=== PATIENT | female | born 1995 | race Caucasian/White ===

== ENCOUNTER 2018-08-16 22:49 | Emergency (ER) | payer SELFPAY ==
[~2018-08-16] VITALS: Ht 160 cm; Wt 68.2 kg
[2018-08-16 22:53] VITALS: Ht 160 cm; Wt 68.2 kg
[2018-08-17 00:23] VITALS: BP 94/43
== END 2018-08-17 00:24 | disposition home or self-care (01) ==
LOC: D.ER 22:49
DX: O26.891 Other specified pregnancy related conditions, first trimester (principal); Z3A.10 10 weeks gestation of pregnancy; T78.40XA Allergy, unspecified, initial encounter; X58.XXXA Exposure to other specified factors, initial encounter; R21 Rash and other nonspecific skin eruption

== ENCOUNTER 2019-01-31 13:36 | Outpatient (CLI) | payer SELFPAY ==
[2018-08-16 22:53] VITALS: BMI 26.6
== END 2019-01-31 15:00 ==
LOC: D.LDO 13:36
PROVIDERS: ATTEND Obstetrics & Gynecology
DX: O36.8130 Decreased fetal movements, third trimester, not applicable or unspecified (principal); Z3A.35 35 weeks gestation of pregnancy

== ENCOUNTER → 2019-02-17 13:38 | Outpatient (CLI) | payer MEDICAID ==
[2018-08-16 22:53] VITALS: BMI 26.6
[~2019-02-17 13:38] MED LIST: HYDROCODON-ACE1 EA10 PO; IBUPROFEN600 MG PO; PRENAVITE1 TAB PO; ZOFRAN ODT4 MG/UDTAB PO
[2019-03-04 23:43] VITALS: BMI 26.6
== END | disposition home or self-care (01) ==
LOC: D.LDO 13:38
PROVIDERS: ATTEND Obstetrics & Gynecology
DX: O36.5930 Maternal care for other known or suspected poor fetal growth, third trimester, not applicable or unspecified (principal); Z3A.37 37 weeks gestation of pregnancy

== ENCOUNTER → 2019-02-22 11:41 | Outpatient (CLI) | payer MEDICAID ==
[2018-08-16 22:53] VITALS: BMI 26.6
[2019-03-04 23:43] VITALS: BMI 26.6
== END | disposition home or self-care (01) ==
LOC: D.LDO 11:41
PROVIDERS: ATTEND Obstetrics & Gynecology
DX: O26.90 Pregnancy related conditions, unspecified, unspecified trimester (principal); O36.90X0 Maternal care for fetal problem, unspecified, unspecified trimester, not applicable or unspecified

== ENCOUNTER → 2019-02-25 06:07 | Outpatient (CLI) | payer MEDICAID ==
[2019-02-25 06:42] LABS: APPEARANCE HAZY (CLEAR); BILIRUBIN NEGATIVE (NEGATIVE); COLOR YELLOW (YELLOW); GLUCOSE NEGATIVE (NEGATIVE); KETONE NEGATIVE (NEGATIVE); NITRITE NEGATIVE (NEGATIVE); PROTEIN TRACE mg/dL (NEGATIVE); RED CELLS - URINE >50 /hpf (0-5); UROBILINOGEN NORMAL (NORMAL); WHITE CELLS - URINE 25-50 /hpf (0-5)
[2019-02-25 06:43] LABS: BACTERIA MODERATE /hpf (NONE SEEN); EPITHELIAL CELLS 0-5 /hpf (0-5)
[2019-02-25 07:15] LABS: UDS - AMPHET NEGATIVE QUAL (NEGATIVE); UDS - BARB NEGATIVE QUAL (NEGATIVE); UDS - BENZO NEGATIVE QUAL (NEGATIVE); UDS - COCAINE NEGATIVE QUAL (NEGATIVE); UDS - OPIATE NEGATIVE QUAL (NEGATIVE); UDS - PCP NEGATIVE QUAL (NEGATIVE); UDS - THC POSITIVE QUAL (NEGATIVE)
== END | disposition home or self-care (01) ==
LOC: D.LDO 06:07
PROVIDERS: Obstetrics & Gynecology
DX: O26.893 Other specified pregnancy related conditions, third trimester (principal); Z3A.38 38 weeks gestation of pregnancy

== ENCOUNTER → 2019-02-27 11:44 | Outpatient (CLI) | payer MEDICAID ==
[2018-08-16 22:53] VITALS: BMI 26.6
[2019-03-04 23:43] VITALS: BMI 26.6
== END | disposition home or self-care (01) ==
LOC: D.LDO 11:44
PROVIDERS: ATTEND Obstetrics & Gynecology
DX: O36.5930 Maternal care for other known or suspected poor fetal growth, third trimester, not applicable or unspecified (principal); Z3A.38 38 weeks gestation of pregnancy

== ENCOUNTER 2019-03-01 06:00 | Inpatient (IN) | payer MEDICAID ==
[2019-03-01] VITALS (14 sets, daily range): BP systolic 107–138; BP diastolic 52–84; BMI 29.2
[~2019-03-01] VITALS: Ht 160 cm; Wt 74.8 kg
[2019-03-01] MEDS ORDERED: PRENAVITE1 TAB PO (06:18)
[2019-03-01 07:20] LABS: UDS - AMPHET NEGATIVE QUAL (NEGATIVE); UDS - BARB NEGATIVE QUAL (NEGATIVE); UDS - BENZO NEGATIVE QUAL (NEGATIVE); UDS - COCAINE NEGATIVE QUAL (NEGATIVE); UDS - OPIATE NEGATIVE QUAL (NEGATIVE); UDS - PCP NEGATIVE QUAL (NEGATIVE); UDS - THC POSITIVE QUAL (NEGATIVE)
[2019-03-01 07:38] LABS: HEMATOCRIT 30.6 % (36.0-48.0); HEMOGLOBIN 10.5 g/dL (12-16); MCH 28.2 pg (26.0-34.0); MCHC 34.3 g/dL (31.0-37.0); MEAN PLATELET VOLUME 12.3 fL (7.4-10.4); RBC 3.73 10x6/uL (4.00-5.40); RDW 12.5 % (11.5-14.5); WBC 8.4 10x3/uL (4.8-10.8)
--- NOTE | 2019-03-01 11:43 | NUR ---
XRAY FREE FROM ANY RETAINED OBJECTS PER DR CARDENAS
--- NOTE | 2019-03-01 12:01 | NUR ---
FUNDUS PALPATED, FIRM AND MIDLINE.
--- NOTE | 2019-03-01 12:15 | NUR ---
RECEIVED PT TO LABOR AND DELIVERY POST SECTION BY DR. GOMEZ. RECEIVED PT BY BED TO #[id number], WITH REPORT RECEIVED FROM VISCOSITY INSPECTOR. PT HAS LOW TRANSVERSE INCISION, COVERED IN LARGE WHITE BORDER DRESSING, C/D/I. ABDOMEN PALPATES SOFT, FUNDUS FIRM, U/1, SMALL RUBRA LOCHIA NOTED ONTO PERIPAD. NEW ICE PACK PLACED OVER GOWN TO INCISION. SCD'S ON, AND CONNECTED TO PUMP. PT STATES "THE NUMBNESS IS STARTING TO WEAR OFF, BUT I CAN'T MOVE MY LEGS YET". PT DENIES ALL PAIN AT THIS TIME. EMESIS BAG AT PT'S SIDE, PT STATES "I GOT NAUSEATED, BUT I JUST SPIT, AND DIDN'T THROW UP". NEW EMESIS BAG PLACED AT PT'S SIDE. VISCOSITY INSPECTOR STATES HE JUST GAVE PT 4 MG OF ZOFRAN IV. PT STATES "I'M STARTING TO FEEL A LITTLE BETTER". PT REQEUSTS SPRITE TO DRINK. PT ENCOURAGED TO TAKE SMALL SIPS OF SPRITE. PT BONDING WITH INFANT. IV SITE WITHOUT REDNESS OR SWELLING, INFUSING IVF OF PITOCIN 20 UNITS OFF PUMP AT MODERATE RATE, SET TO PUMP AT 125 ML/HR WITH APPROX 400 ML LEFT IN CURRENT BAG. PT DENIES SOB, DIFFICULTY BREATHING OR NAUSEA AT THIS TIME. DILAUDID ACTUARY EXPLAINED TO PT FOR PAIN MANAGMENT. PT'S LEFT EYE NOTED TO BE SLIGHTLY RED WITH EYELID SLIGHTLY SWOLLEN. PT DENIES VISUAL DISTURBANCES, NO DROOPING OR WEAKNESS NOTED TO FACE/TONGUE. WARM WET WASHCLOTH PROVIDED FOR PT TO PLACE OVER LEFT EYE. PT DENIES PAIN TO EYE. PT HAS HERNANDEZ CATH IN PLACE WITH 700 ML'S TOTAL OUTPUT OF YELLOW URINE. PT DENIES ALL OTHER NEEDS AT THIS TIME. SRUP X 2, CALL LIGHT AND PHONE WITHIN REACH.
--- NOTE | 2019-03-01 12:30 | NUR ---
FUNDUS FIRM, U/1, SMALL RUBRA LOCHIA, NO CLOTS EXPELLED. PT CONTINUES TO BREASTFEED . Prasad JADE, LYNN ASSISTING PT WITH . PT DENIES ALL NEEDS AT THIS TIME. SRUP X2, CALL LIGHT AND PHONE WITHIN REACH.
--- NOTE | 2019-03-01 12:45 | NUR ---
TO PT'S ROOM, FUNDUS FIRM, U/1, SMALL RUBRA LOCHIA, NO CLOTS EXPELLED. PT DENIES SOB, NAUSEA, OR DIFFICULTY BREATHING AT THIS TIME. SR UP X 2, CALL LIGHT AND PHONE WITHIN REACH.
--- NOTE | 2019-03-01 13:00 | NUR ---
PT REPORTS PAIN TO INCISIONAL AREA 2-3/10.
--- NOTE | 2019-03-01 13:30 | NUR ---
ASSISTED PT WITH REPOSITIONING IN THE BED, TO RIGHT TILT. PT WISHES TO REST AT THIS TIME. PT DENIES ALL OTHER NEEDS. SRUP X2, CALL LIGHT AND PHONE WITHIN REACH.
--- NOTE | 2019-03-01 14:45 | NUR ---
TO PT'S ROOM TO ADM TORADOL PT HAS REQUESTED. SEE EMAR FOR ALL MED ADM. FUNDUS FIRM, U/1, SMALL RUBRA LOCHIA, ONE DIME SIZED CLOTS EXPELLED. MINIMAL EXTERNAL LABIAL SWELLING NOTED. PERINEAL CARE DONE WITH WARM WET WASHCLOTHS, PERITOWELS/CHUX CHANGED, WITH PERIPADS APPLIED. HERNANDEZ CATH CONTINUES TO DRAIN YELLOW URINE, TOTAL URINE OUTPUT NOTED IN HERNANDEZ BAG IS 1000 ML'S. SCD'S REMAIN ON. PT'S POSITION CHANGED FROM LEFT TILT, TO RIGHT TILT, WITH PILLOW PLACED UNDER BACK FOR SUPPORT AND COMFORT. FRESH ICE PACK PLACED OVER GOWN TO INCISION. PT INSTRUCTED ON USE OF INCENTIVE SPIROMETER, AND COUGHING AND DEEP BREATHING EXERCISES, AND PT DEMONSTRATES BOTH WELL X 3. PT HAS CLEAR LIQUID DIET, AND DENIES NAUSEA, SOB, OR DIFFICULTY BREATHING. SRUP X 2, CALL LIGHT AND PHONE WITHIN REACH. PT DENIES ALL OTHER NEEDS AT THIS TIME. FAMILY AT BEDSIDE.
--- NOTE | 2019-03-01 15:00 | NUR ---
DR. QUACH TO ROOM TO SPEAK WITH PT.
[2019-03-01 16:55] LABS: BASOPHILS 0.1 % (0-2); EOSINOPHILS 0.2 % (0-7); HEMATOCRIT 29.3 % (36.0-48.0); HEMOGLOBIN 10.2 g/dL (12-16); IMMATURE GRANULOCYTES 0.2 % (0-5); LYMPHOCYTES 19.2 % (15-50); MCH 28.4 pg (26.0-34.0); MCHC 34.8 g/dL (31.0-37.0); MCV 81.6 fL (80.0-100.0); MEAN PLATELET VOLUME 11.4 fL (7.4-10.4); MONOCYTES 6.4 % (2-11); NEUTROPHILS 73.9 % (40-80); PLATELET COUNT 145 10x3/uL (130-400); RBC 3.59 10x6/uL (4.00-5.40); RDW 12.4 % (11.5-14.5)
[2019-03-01 16:56] LABS: WBC 12.3 10x3/uL (4.8-10.8)
--- NOTE | 2019-03-01 18:00 | NUR ---
TO PT'S ROOM, INFANT IS . PT REQUESTS HELP WITH , AND STATES "I DO NOT LIKE THIS NIPPLE SHIELD". BERTO JADE, MINILAB OPERATOR NOTIFIED AND TO ROOM TO ASSIST PT WITH . NIPPLES ARE NOTED TO BE FLAT. FRESH ICE PACK PLACED OVER GOWN TO INCISION. ABDOMEN PALPATES SOFT. HERNANDEZ CATH EMPTIED WITH 1000 MLS OUTPUT. FAMILY REMAINS AT BEDSIDE. SRUP X 2, CALL LIGHT AND PHONE WITHIN REACH.
--- NOTE | 2019-03-01 18:40 | NUR ---
PT CALLS RN TO ROOM, STATES "I JUST BARFED, AND CAN YOU THROW MY BAG AWAY?" APPROX 50 CC'S OF LIGHT GREEN EMESIS NOTED IN BLUE EMESIS BAG. PT STATES "PAIN MEDICINE DOES THIS TO ME, BUT I'M NOT NAUSEATED ALL THE TIME, ONLY EVERY NOW AND THEN WHEN I PUSH MY BUTTON". PT DENIES NEEDING ANYTHING FOR NAUSEA AT THIS TIME. FRIENDS AT BEDSIDE TO VISIT. SR UP X 2, CALL LIGHT AND PHONE WITHIN REACH. PT REPORTS PAIN 2-3/10 INCISIONAL PAIN, STATES "IT FEELS LIKE IT TALAMANTES AND I CAN FEEL PRESSURE".
--- NOTE | 2019-03-01 19:06 | NUR ---
PATIENT SITTING UP IN BED VISITING WITH FAMILY/FRIENDS. BLOOD SPOT NOTED ON GOWN FROM WHERE IT HAD FALLEN BETWEEN HER LEGS. PERIPAD AND UNDERPADS REMOVED AND REPLACE WITH CLEAN PADS. CLEAN GOWN ALSO PROVIDED. FUNDUS FIRM MIDLINE/-2 AND BLEEDING NOTED TO BE SCANT RUBRA. DRESSING HAS ONE SMALL SPOT NOTED IN THE MIDDLE BUT HAS NOT COME THROUGH THE PAD AND NOT GOTTEN ANY LARGER THAN ORIGINALLY DOCUMENTED PER DAYSHIFT. HERNANDEZ DRAINING TO GRAVITY, MODERATE VAGINAL SWELLING NOTED WHICH REMAINS NO DIFFERENT THAN DAYSHIFTS ASSESSMENT. SCD BOOTS REMAIN IN PLACE ATTACHED TO A WORKING MACHINE. PT DENIES NEEDS AT THIS TIME. BED REMAINS LOCKED IN LOW POSITION, SIDERAILS UPX2 AND CALL PALOMARES AND TRAY TABLE IN REACH. INCENTIVE SPIROMETER AT BEDSIDE AND PT STATES THAT SHE HAS BEEN USING IT
--- NOTE | 2019-03-01 20:23 | NUR ---
PT STATES THAT SHE IS HUNGRY, APPLE JUICE AND CHICKEN BROTH PROVIDED PER CLEAR LIQUID DIET ORDER. PT HAS ICE WATER AND ICE CHIPS ON HER BEDSIDE TABLE. PT DENIES OTHER NEEDS AT THIS TIME. INFANT PLACED BACK IN OPEN CRIB AT BEDSIDE PER PT REQUEST. WILL CONTINUE TO MONITOR.
--- NOTE | 2019-03-01 20:42 | NUR ---
CALLED TO ROOM BY PATIENT, STATES THAT SHE JUST THREW UP. 400ML LIQUID EMESIS NOTED IN BAG. COLD RAG PROVIDED AND PT OFFERED A TOOTBRUSH BUT DECLINES. ZOFRAN AND TORADOL ADMINISTERED PER MD ORDERS, SEE EMAR. PT REQUESTING FOR PAM TO COME ASSIST HER WITH .
--- NOTE | 2019-03-01 20:52 | NUR ---
INFORMED LYNN OROZCO THAT THE PT HAD REQUESTED HER ASSISTANCE WITH , LYNN OROZCO TO BEDSIDE AT THIS TIME. FRESH ICE PACK ALSO PROVIDED FOR PTS ABDOMEN. PT DENIES FURTHER NEEDS. WILL CONTINUE TO MONITOR.
--- NOTE | 2019-03-01 21:29 | NUR ---
INFANT TO NURSERY VIA OPEN CRIB PER BREANARN PER MOTHERS REQUEST. STATES THAT SHE IS TIRED AND WOULD LIKE TO REST. PT HAS NO FAMILY OR FRIENDS STAYING WITH HER TONIGHT.
--- NOTE | 2019-03-01 22:43 | NUR ---
IN TO CHECK ON PT AND ASSIST SIGNIFICANT OTHER WITH MAKING THE COUCH INTO A BED. PT DENIES NEEDS OR PAIN, WILL CONTINUE TO MONITOR
--- NOTE | 2019-03-01 23:39 | NUR ---
PATIENT SITTING UP IN BED HOLDING INFANT AND BOTTLE FEEDING WITH ASSISTANCE FROM ZACHARIAH, RN AT THIS TIME. DENIES PAIN OR NEEDS, INSTRUCTED TO CALL WHEN SHE IS FINISHED SO I CAN CLEAN HER UP AND CHANGE HER PADS. PT VERBALIZES UNDERSTANDING.
--- NOTE | 2019-03-02 00:05 | NUR ---
PERICARE PERFORMED, BLEEDING SEROSANGUINOUS, SMALL IN AMOUNT. PADS CHANGED AT THIS TIME. PT DENIES OTHER NEEDS, WILL CONTINUE TO MONITOR.
--- NOTE | 2019-03-02 01:10 | NUR ---
IN TO CHECK ON PATIENT, NEW 1LITER BAG OF NS WITH PITOCIN HUNG AND INFUSING WITH ALARIS PUMP @125ML/HR PER MD ORDERS. PT DENIES NEEDS, LIGHTS OFF AND CALL PALOMARES IN REACH. WILL CONTINUE TO MONITOR.
--- NOTE | 2019-03-02 02:45 | NUR ---
PATIENT SITTING UP IN BED HOLDING . PT ASSISTED WITH . UNINTERESTED, PT DECIDED TO TRY A BOTTLE AND INFANT SEEMS UNINTERESTED WELL. LYNN TOUSSAINT NOTIFIED. TORADOL GIVEN SLOW IVP PER MD ORDERS AND PT REQUEST, SEE EMAR.
--- NOTE | 2019-03-02 04:00 | NUR ---
PT RESTING QUIETLY WITH EYES CLOSED, RESPIRATIONS EVEN AND NON LABORED. NO DISTRESS NOTED. BED REMAINS LOCKED IN LOW POSITION, SIDERAILS UP X2, CALL PALOMARES AND TRAY TABLE IN REACH. WILL CONTINUE TO MONITOR.
--- NOTE | 2019-03-02 06:40 | NUR ---
PATIENT SITTING UP IN BED, RATES HER PAIN 2/10 TO HER BACK. HYDRAULIC BILLET MAKER REMAINS IN USE. PERICARE PERFORMED AND CLEAN PADS PLACED. HERNANDEZ CATHETER DRAINING TO GRAVITY, 800 ML LULU URINE EMPTIED AT THIS TIME. PT REQUESTING THAT COME BACK TO THE ROOM.
--- NOTE | 2019-03-02 06:46 | NUR ---
INFANT TO ROOM VIA OPEN CRIB PER THIS RN. IDENTIFICATION BRACELETS VERIFIED. PT INFORMED THAT THE COULD EAT AT 0730 AND AFTER PUTTING HER TO THE BREAST IF THAT WAS UNSUCCESSFUL TO FEED HER A BOTTLE USING THE NEW NIPPLES PLACED IN THE CRIB PER LYNN TOUSSAINT. PT VERBALIZES UNDERSTANDING.
--- NOTE | 2019-03-02 07:05 | NUR ---
THIS RN AND LYNN SNEED AT BEDSIDE FOR BEDSIDE SHIFT REPORT. DR GOMEZ TO BEDSIDE FOR ROUNDING, ABD DRESSING REMOVED AND INCISION ASSESSED. C/D WITH SOFIA INTACT. DR GOMEZ DISCUSSES POC, VERBAL ORDERS RCVD TO NORMALIZE PT. IV MEDS STOPPED PER ORDER, IV SALINE LOCKED.
[2019-03-02 07:22] LABS: RAPID PLASMA REAGIN Non Reactive (Non Reactive)
[2019-03-02 07:26] LABS: BASOPHILS 0.2 % (0-2); EOSINOPHILS 0.7 % (0-7); HEMATOCRIT 28.2 % (36.0-48.0); HEMOGLOBIN 9.6 g/dL (12-16); IMMATURE GRANULOCYTES 0.1 % (0-5); LYMPHOCYTES 24.7 % (15-50); MCH 28.2 pg (26.0-34.0); MCV 82.7 fL (80.0-100.0); MEAN PLATELET VOLUME 11.1 fL (7.4-10.4); MONOCYTES 7.3 % (2-11); PLATELET COUNT 130 10x3/uL (130-400); RBC 3.41 10x6/uL (4.00-5.40); RDW 12.5 % (11.5-14.5); WBC 9.5 10x3/uL (4.8-10.8)
--- NOTE | 2019-03-02 07:26 | NUR ---
LAB EXITS ROOM FROM AM LAB DRAW. PT REQUESTING PAIN PILL "BEFORE PAIN GETS WORSE" RESOLUTION REP IS STOPPED. PT STATES SHE IS EASILY NAUSEATED WITH PAIN MEDS, REQUESTS ZOFRAN FIRST. PT ADMIN ZOFRAN IV ORDERED, SEE EMAR FOR DOC. PT PROVIDED WITH CRACKERS TO HAVE SOMETHING IN STOMACH PRIOR TO PAIN DIGITAL MEDIA SPECIALIST.
--- NOTE | 2019-03-02 07:31 | NUR ---
PT ADMIN PRN NORCO 10 ORDERED, SEE EMAR FOR DOC. SHIFT ASSESSMENT COMPLETED, VSS, SEE FLOWSHEET FOR DOC. FF, ML, U/1. SMALL RUBRA LOCHIA, NO CLOTS. HERNANDEZ CATH REMOVED PER ORDER. SCD'S REMAIN IN PLACE TO LE BILAT. PT INSTRUCTED TO CALL WHEN FEELS URGE TO VOID SO THIS RN CAN REMOVE SCD'S AND ASSIST PT TO BR. UNDERSTANDING VERBALIZED. S/S TO REPORT REGARDING LOCHIA DISCUSSED WITH PT, UNDERSTANDING VERBALIZED. PT ASSISTED TO SETTING UP BREAKFAST TRAY. PT ENCOURAGED TO EAT SLOWLY AND REPORT ANY NAUSEA. EMESIS BAG AT BEDSIDE. SRUx2, CL IN REACH. WILL CONT TO MONITOR.
[2019-03-02 07:38] VITALS: BP 117/64
--- NOTE | 2019-03-02 07:50 | NUR ---
PT CALLS OUT GOSPEL WORKER LIGHT STATING SHE VOMITED. THIS RN TO ROOM. PT SITTING UP IN BED, HOLDING EMESIS BAG WITH APPROX 100ML LIQUID VOMIT. PT STATE SHE THREW UP NORCO TABLET. TABLET NOTED IN BAG. PT REQUESTING SOMETHING ELSE FOR PAIN PAIN PILLS MAKE HER SICK. PT REQUESTING TORADOL, OR TO GO BACK ON IV PAIN MEDS. PT INSTRUCTED THAT IV PAIN MEDS HAVE BEEN STOPPED PER MD ORDER. DR GOMEZ PHONED AND NOTIFIED. ORDER RCVD FOR NORCO 5/325MG AND SEE IF PT IS ABLE TO TOLERATE THAT.
--- NOTE | 2019-03-02 07:55 | NUR ---
PT UPDATED ON POC, EATING BREAKFAST. PT ENCOURAGED TO HAVE SOMETHING ON STOMACH AND ALLOW IT TO SETTLE, AND WILL BRING NORCO 5 SOON WHEN AVAILABLE FROM PHARMACY. UNDERSTANDING VERBALIZED. SRUx2, CL IN REACH.
--- NOTE | 2019-03-02 08:15 | NUR ---
PT CALLS OUT SUPERVISOR CASE LOADING LIGHT STATING SHE VOMITED AGAIN. THIS RN TO ROOM. EMESIS BAG NOTED TO HAVE VOMITED SOLIDS AND LIQUIDS FROM BREAKFAST TRAY. TRAY REMOVED, PT ENCOURAGED TO GO SLOWER AND ONLY TRY CRACKERS FOR NOW, AND WILL WAIT TO TRY ADMIN PAIN MED FOR NOW. UNDERSTANDING VERBALIZED. PT HANDED INFANT TO BREASTFEED. SRUx2, CL AND PHONE WITHIN REACH. WILL CONT TO MONITOR.
--- NOTE | 2019-03-02 09:00 | NUR ---
THIS RN TO ROOM FOR PT CHECK AND PAIN DRIER IF READY. PT RESTING IN BED, SUPINE WITH EYES CLOSED. RESP EVEN AND UNLABORED. SRUx2, CL IN REACH. PT LEFT UNDISTURBED FOR REST.
--- NOTE | 2019-03-02 09:44 | NUR ---
PT CALLS OUT INVENTORY CLERK LIGHT STATING SHE IS READY TO GET UP TO BR. THIS RN TO ROOM. PT REQUEST PAIN MED. PT ADMIN PRN NORCO 5/325MG ORDERED, SEE EMAR FOR DOC. PT AMBULATES TO BR WITHOUT ASSIST, VOIDS APPROX 200ML URINE IN CONTAINER. PT PASSES 1 HALF-DOLLAR SIZED CLOT IN CONTAINER, SMALL RUBRA LOCHIA NOTED WELL. PERICARE PER PT SELF WITH WARM WET CLOTHS. PT PLACED IN CLEAN PANTIES AND PADS. AMBUALTES BACK TO BED WITHOUT ASSIST. PT REQUESTS SCD'S OFF AT THIS TIME FOR A BREAK, STATES SHE LIKES BEING ABLE TO MOVE AROUND IN BED. PT INSTRUCTED TO CALL OUT INVENTORY CLERK LIGHT FOR ASSIST WHEN UP TO BR AGAIN, AND WILL MEASURE NEXT VOID. UNDERSTANDING VERBALIZED. PT PROVIDED WITH FRESH ICE WATER, JELLO, AND CRACKERS PER REQUEST. TRANSFERRED TO PT PER REQUEST, ID BANDS VERIFIED TO MATCH. TRASH IN ROOM TAKEN OUT. PT DENIES FURTHER NEEDS. SRUx2, CL IN REACH. WILL CONT TO MONITOR.
[2019-03-02 11:00] VITALS: BP 124/71
--- NOTE | 2019-03-02 11:00 | NUR ---
PT CALLS OUT MARRIAGE PERFORMER LIGHT C/O HEADACHE. THIS RN TO ROOM. PT STATES PAIN ISN'T REALLY BETTER IN ABD AND NOW SHE HAS A HEADACHE. PT ADMIN PRN MOTRIN ORDERED, SEE EMAR FOR DOC. PT ENCOURAGED TO TRY CRACKERS OR JELLO WITH IT THE PILL MAY UPSET HER STOMACH AGAIN. UNDERSTANDING VERBALIZED. VSS, SEE FLOWSHEET FOR DOC. PT DENIES FURTHER NEEDS AT THIS TIME. SRUx2, CL IN REACH. WILL CONT TO MONITOR.
--- NOTE | 2019-03-02 12:30 | NUR ---
PT CALLS OUT AREA ATTENDANT LIGHT REQUESTING NURSE, THIS RN TO ROOM. PT STATES SHE HAS BEEN UP TO BR ONCE ALREADY AND IS ABOUT TO GET UP TO VOID AGAIN, WANTED NURSE TO BE ABLE TO MEASURE VOIDS INSTRUCTED. 350ML CLEAR YELLOW URINE NOTED IN CONTAINER FROM PRIOR VOID. CONTAINER EMPTIED. TAKEN FROM PT AND PLACED IN BASSINETTE. PT AMBULATES TO BR WITHOUT ASSIST, STEADY GAIT. PT VOIDS 400ML CLEAR YELLOW URINE, WASHES HANDS AND AMBULATES BACK TO BED. PT STATES PAIN IN ABD AND HEADACHE IS "A LITTLE BETTER," /. PT DENIES NEEDS AT THIS TIME. PT INSTRUCTED TO CALL WHEN SHE IS READY FOR A SHOWER AND THIS RN WILL CHANGE BED LINENS. UNDERSTANDING VERBALIZED, PT STATES SHE WILL SHOWER SHORTLY WHEN FAMILY MEMBER ARRIVES. SRUx2, CL IN REACH. WILL CONT TO MONITOR.
[2019-03-02 13:20] VITALS: Ht 160 cm; Wt 74.8 kg
--- NOTE | 2019-03-02 13:40 | NUR ---
PT CALLS OUT PERSONNEL GENERALIST MANAGER LIGHT REQUESTING RN TO ROOM. THIS RN TO ROOM. PT STATES SHE IS READY TO TAKE A SHOWER, AND THEN WILL BE READY FOR HER PAIN MED SHE IS STARTING TO HURT AGAIN WITH MOVEMENT. PT UP TO SHOWER, DENIES NEED FOR ASSISTANCE. PT PROVIDED WITH SHOWER SUPPLIES AND TOWELS. PT SHOWERS WITHOUT ASSIST. THIS RN CHANGES BED LINENS AND MONITORS IN BASSINETTE WHILE PT SHOWERS. PT OUT OF SHOWERS, DENIES NEED FOR ASSIST. DRIES SELF AND DRESSES IN OWN CLOTHES. PT BACK TO BED. INFANT HANDED TO PT PER REQUEST. WILL ADMIN PAIN MED ORDERED.
--- NOTE | 2019-03-02 14:02 | NUR ---
PT ADMIN PRN PAIN MED REQUESTED AND ORDERED, SEE EMAR FOR DOC. PT DENIES FURTHER NEEDS AT THIS TIME. SITTING UP IN BED HOLDING . SRUx2, CL IN REACH. WILL CONT TO MONITOR.
--- NOTE | 2019-03-02 15:48 | NUR ---
THIS RN TO ROOM FOR PT CHECK. PT SITTING UP IN BED, FEEDING A BOTTLE. PT STATES PAIN IS BETTER, BUT STILL HAS HEADACHE AND TENSION AT BACK OF HER NECK. PT STATES IT FEELS BETTER WHEN SHE IS UP OUT OF BED WALKING, STATES SHE JUST FEELS STIFF. PT ENCOURAGED, OFFERED TO TRY HEAT APPLICATION TO NECK LATER WHEN RESTING. DENIES NEEDS AT THIS TIME. SRUx2, CL IN REACH. WILL CONT TO MONITOR.
--- NOTE | 2019-03-02 17:24 | NUR ---
PT CALLS OUT WEAVER NARROW FABRICS LIGHT REQUESTING RN. THIS RN TO ROOM. PT C/O HEADACHE AND BACK PAIN, REQUESTING PAIN MEDICATION. PT ADMIN PRN MOTRIN ORDERED, SEE EMAR FOR DOC. PT PROVIDED WITH WARM HEEL PACK FROM NURSERY FOR NECK. PT ALSO PROVIDED WITH CUP OF ICE FOR SODA. PT DENIES FURTHER NEEDS. SRUx2, CL IN REACH. PT VISITING WITH FAMILY. WILL CONT TO MONITOR.
--- NOTE | 2019-03-02 18:21 | NUR ---
PT CALLS OUT HYDROELECTRIC PRODUCTION MANAGER LIGHT WITH REQUEST FOR RN. THIS RN TO ROOM. PT STATES PAIN IN HEAD AND NECK IS ONLY GETTING WORSE, NOW RATING PAIN 10/10. PT ADMIN PRN NORCO 5/325 PER HER REFUSAL FOR NORCO 10/325 DUE TO PRIOR NAUSEA WITH THAT DOSE. PT ENCOURAGED TO LIE FLAT AND LIGHTS IN ROOM DIMMED. PT STATES HER HEAD ALREADY FEELS BETTER IMMEDIATELY AFTER LYING FLAT. PT INSTRUCTED TO REMAIN FLAT FOR 20-30MIN TO EVAL IF HEADACHE STAYS BETTER WHILE SUPINE, AND WILL NOTIFY ANESTHESIA FOR EVAL OF HEADACHE. UNDERSTANDING VERBALIZED. SRUx2, CL IN REACH. FAMILY IN ROOM. WILL CONTINUE TO MONITOR.
--- NOTE | 2019-03-02 18:26 | NUR ---
ANESTHESIA PAGED AND NOTIFIED OF NEED FOR EVALUATION OF PATIENT FOR POSSIBLE SPINAL HEADACHE.
--- NOTE | 2019-03-02 18:59 | NUR ---
PT RECEIVED LYING FLAT IN BED DUE TO HEADACHE. STATES THAT HER HEADACHE IS GONE WHEN SHE LAYS FLAT. INFORMED HER THAT ANESTHESIA WOULD BE IN TO EVALUATE HER SOON. FAMILY AT BEDSIDE FOR SUPPORT.
--- NOTE | 2019-03-02 20:00 | NUR ---
ANESTHESIA TO PTS ROOM, DISCUSSING PLAN OF CARE. AFTER REVIEWING SYMPTOMS PLAN OF CARE IS DECIDED. PT WILL DRINK SEVERAL MOUNTAIN DEWS, HAVE AN IV FLUID BOLUS AND TRAMADOL 50 MG PO Q6HRS. IF PT HAS NO RELIEF BY MORNING THEN A BLOOD PATCH WILL BE INITIATED. PT VERBALIZES AGREEMENT.
--- NOTE | 2019-03-02 20:05 | NUR ---
20 GAUGE IV STARTED TO LEFT HAND AT THIS TIME WITHOUT INCIDENT.
--- NOTE | 2019-03-02 20:10 | NUR ---
NO MOUNTAIN DEW ON UNIT, TWO DR PEPPERS AND A CUP OF ICE PROVIDED PER ANESTHESIA. FIRE FIGHTER CALLED BUT PHONE IS BUSY
--- NOTE | 2019-03-02 20:13 | NUR ---
1000ML LACTATED RINGERS @500ML/HR PER ORDERS
[2019-03-02 20:33] VITALS: BP 136/75
--- NOTE | 2019-03-02 21:24 | NUR ---
PT STATES THAT LONG SHE LAYS FLAT AND DOESNT MOVE SHE HAS NO PAIN. ENCOURAGED HER TO GET SOME REST. BED REMAINS LOCKED IN LOW POSITION, SIDE RAILS UPX2, CALL PALOMARES AND TRAY TABLE IN REACH. WILL CONTINUE TO MONITOR.
--- NOTE | 2019-03-02 22:15 | NUR ---
PATIENT ASSISTED UP TO BATHROOM, STATES THAT SOON SHE STOOD UP HER HEADACHE WAS BACK. PT GRIMACING AND CRYING WHILE WALKING TO THE BATHROOM.PT VOIDED WITHOUT DIFFICULTY AND BACK TO BED.
--- NOTE | 2019-03-02 22:20 | NUR ---
EMERY VASQUEZ CRNA PAGED WITH IMMEDIATE CALL BACK, REPORT GIVEN ON PT REQUEST FOR A BLOOD PATCH AT THIS TIME DUE TO HER HEADACHE WILL NOT GO AWAY DESPITE THE IV FLUIDS, TRAMADOL AND TWO DR DANIELSS. EMERY VASQUEZ CRNA STATES THAT DR OTERO WANTS TO WAIT UNTIL THE MORNING AND TO GIVE HER TORADOL 30MG IVP NOW.
--- NOTE | 2019-03-02 22:30 | NUR ---
IV FLUIDS COMPLETED. IV SALINE LOCKED.
--- NOTE | 2019-03-02 22:35 | NUR ---
TORADOL 30MG SLOW IVP GIVEN PER MD ORDERS FOR 8/10 HEADACHE PAIN AT THIS TIME, SEE EMAR.
--- NOTE | 2019-03-02 23:25 | NUR ---
PT VISITING WITH FAMILY AND FRIENDS, STATES THAT SHE FEELS SO MUCH BETTER, RATES HER PAIN 2/10 TO HER INCISION. DENIES NEEDS, WILL CONTINUE TO MONITOR.
[2019-03-03] VITALS (7 sets, daily range): BP systolic 122–137; BP diastolic 66–90
--- NOTE | 2019-03-03 00:40 | NUR ---
LINENS PROVIDED FOR FAMILY AT THIS TIME, PT DENIES NEEDS OR PAIN AT THIS TIME. WILL CONTINUE TO MONITOR.
--- NOTE | 2019-03-03 01:59 | NUR ---
PATIENT RESTING QUIETLY WITH EYES CLOSED, FAMILY REMAINS AT BEDSIDE FOR SUPPORT. NO NEEDS IDENTIFIED.
--- NOTE | 2019-03-03 02:34 | NUR ---
PATIENT ADMINISTERED TRAMADOL 50MG PO PER MD ORDERS AT THIS TIME. SEE EMAR
--- NOTE | 2019-03-03 05:30 | NUR ---
ICE WATER BROUGHT TO PATIENT PER REQUEST. PT DENIES PAIN OR OTHER NEEDS AT THIS TIME
--- NOTE | 2019-03-03 06:29 | NUR ---
CALLED TO PATIENTS ROOM AT THIS TIME, PT CRYING, SAYING THAT HER HEAD BACK AND SHOULDERS ALL HURT, THERE IS SOMETHING WRONG WITH ME. ANESTHESIA PAGED WITH IMMEDIATE CALL BACK AND REPORTED PT CONTINUED PAIN. ANESTHESIA WILL BE HERE SOON TO EVALUATE THE PATIENT
--- NOTE | 2019-03-03 07:10 | NUR ---
ASSUMED CARE OF THIS PATIENT. CURRENTLY LAYING IN BED WITH EYES CLOSED. WILL COMPLETED SHIFT ASSESSMENT WHEN AWAKE. IN NURSERY. SIDERAILS UP X 2, CALL LIGHT IN REACH.
--- NOTE | 2019-03-03 07:10 | NUR ---
PT REPORT GIVEN TO XAVI CORTÉS RN TO ASSUME PATIENT CARE.
--- NOTE | 2019-03-03 07:29 | NUR ---
SHIFT ASSESSMENT COMPLETED. ALERT AND ORIENTED X 3, LAYING NEARLY FLAT IN BED, HAS C/O NECK AND SHOULDER PAIN / BUT NO HEADACH WHILE LAYING FLAT. SAYS IT GOT BAD AGAIN WHEN SHE GOT UP TO THE BATHROOM. GENERAL ASSESSMENT WNL EXCEPT FEDE-ORBITAL EDEMA NOTED, PT SAYS SHE HAD BEEN CRYING AND THAT HER EYES GET "PUFFY" WHEN SHE CRY'S. SHE ASKED ABOUT SEEING HER DOCTER. EXPLAINED THAT HE IS IN SURGERY AND WILL BE BY TO SEE HER [place]. ANTICIPATE ARRIVAL OF ANESTHESIA AT ANYTIME TO DISCUSS OB. SIDE RAILS UP X 2, CALL LIGHT IN REACH. DENIES INCISIONAL PAIN. NON-SMOKER, O+ RUBELLA IMMUNE, WILL CHECK TDAP STATUS BEFORE PT DC'D TO SEE IF TDAP IS REQUIRED. S/P C/S DAY 2.
--- NOTE | 2019-03-03 07:30 | NUR ---
Shiela Washburn RN from nursery reports that pt has requested to see/speak with Dr Patterson.
--- NOTE | 2019-03-03 07:32 | NUR ---
Dr Patterson notified of pt request, per md he would be in to see pt this am but currently in OR/Surgery, this is reported to pt primary nurse.
--- NOTE | 2019-03-03 07:45 | NUR ---
DR RUIZ AND Bo COWAN CRNA IN ROOM TO PERFORM BLOOD PATCH AFTER CONSENTING PATIENT. CONSENT SIGNED. Bo OCWAN CRNA ASSISTED PT TO SITTING POSITION AND ASSISTED DR RUIZ WITH PROCEDURE. SEE ANESTHESIA NOTES.
--- NOTE | 2019-03-03 07:45 | NUR ---
CONSENTS OBTAINED FOR BLOOD PATCH PER REQUEST OF DR RUIZ.
--- NOTE | 2019-03-03 08:00 | NUR ---
PROCEDURE COMPLETED. PT RETURNED TO LAYING POSITION. SAID PAIN WAS 3/10 WHILE SITTING. SIDERAILS UP X 2. DR RUIZ REMAINED IN ROOM. VS OBTAINED.
--- NOTE | 2019-03-03 08:00 | NUR ---
PROCEDURE COMPLETED BY DR RUIZ. VS OBTAINED. REMAINS IN ROOM WITH PATIENT.
--- NOTE | 2019-03-03 08:10 | NUR ---
ORDERS RECEIVED BY DR RUIZ TO GIVE ONE LITER BOLUS OF LR.
--- NOTE | 2019-03-03 08:15 | NUR ---
IV LR INFUSING AT 999 ML/HR PER ALARIS PUMP INTO LEFT HAND. NO EVIDENCE OF INFILTRATION AT THIS TIME. SIDERAILS REMAIN UP. EXTRACTION OPERATOR TO ROOM WITH TO WATCH PT FOR APPROX NEXT 30 MINS.
--- NOTE | 2019-03-03 09:50 | NUR ---
RESUMED CARE OF THIS PATIENT. NOW SITTING UP IN BED EATING BREAKFAST. DENIES PAIN IN HEAD OR SHOULDERS. NO INCISIONAL PAIN "EXCEPT WHEN I MOVE". IN ROOM. VISITOR AT BEDSIDE. BED PLACED IN LOW POSITION, SIDE RAILS UP X 2, CALL LIGHT IN REACH. IV INFUSING AT 999 ML/HR WITHOUT DIFFICULTY.
--- NOTE | 2019-03-03 10:08 | NUR ---
IV LR INFUSION COMPLETED. IV LINE DC'D FROM SALINE LOCK. ANTICIPATE MD VISIT. PATIENT ASKED ABOUT GOING HOME. NO REQUESTS. SIDERAILS UP X 2, CALL LIGHT IN REACH.
--- NOTE | 2019-03-03 10:59 | NUR ---
DR GOMEZ IN ROOM TALKING TO PATIENT.
--- NOTE | 2019-03-03 11:05 | NUR ---
NORCO 10 MG GIVEN PO PER REQUEST OF DR GOMEZ. PT SAY 0/10 PAIN EXCEPT WHEN MOVING AND IT IS AN 8/10 WITH MOVEMENT. TOOK NORCO 10 YESTERDAY AND SAYS SHE THREW UP IMMEDIATELY. TOOK MED WITH CRACKERS AT THIS TIME. SIDE RAILS UP X 2, CALL LIGHT IN REACH.
--- NOTE | 2019-03-03 11:13 | NUR ---
ASKED DR GOMEZ ABOUT ABDOMINAL BINDER TO ASSIST WITH LEFT ABD PAIN WHEN UP SAYS CAN TRY.
--- NOTE | 2019-03-03 11:20 | NUR ---
CALLED LAINA AT [facility] TO CHECK ON STATUS OF CONSULT. LEFT VOICE MAIL FOR HER TO CALL L&D.
--- NOTE | 2019-03-03 11:39 | NUR ---
SITTING UP IN BED HOLDING . SAYS HER PAIN IS BETTER, NOW A 3/10 WHEN MOVING BACK AND FORTH. STATES " I REALLY THINK IT'S BECAUSE I'VE BEEN IN BED". ENCOURAGED OOB AMBULATION. INSTRUCTED THAT THE BURNING IS COMMON DUE TO SURGERY AND THAT GETTING OOB, SHOWER AND AMBULATION MAY HELP. ALSO DISCUSSED ABDOMINAL BINDER OPTION FOR PAIN RELIEF WHEN UP. WILL REASSESS WHEN READY TO GET OUT OF BED.
--- NOTE | 2019-03-03 11:42 | NUR ---
CONTACTED LAINA IN [facility] WHO SAID SHE WILL BE DOWN TODAY TO SEE PATIENT. NO CURRENT DC ON PATIENT. CAN BE DC'D HOME TODAY.
--- NOTE | 2019-03-03 13:05 | NUR ---
CALLED TO ROOM. PT SAYS HERE INCISION IS BLEEDING. NOTED DIME SIZE SPOT OF BLOOD ON UNDERWEAR AND GOWN. NO CURRENT ACTIVE BLEEDING NOTED. SOFIA INTACT. NOTED SMALL BLOOD AROUND 4 SOFIA LEFT SIDE OF INCISION. FEDE-PAD PLACED OVER SITE. SITTING UP ON BEDSIDE EATING LUNCH WHEN ABOVE OCCURED. PT TO CALL IF ANY FUTHER BLEEDING. IN ROOM IN CRIB.
--- NOTE | 2019-03-03 13:29 | NUR ---
PT CALLED REQUESTING TO TAKE A SHOWER. UP IN ROOM AMBULATING WITHOUT DIFFICULTY. ASKED ABOUT AREAS ABOVE HIPS THAT "FEEL TIGHT". SLIGHT EDEMA NOTED BILATERALLY. EXPLAINED TO PATIENT THAT SOMETIMES THIS OCCURS AFTER DELIVERY OR MAY EVEN BE PRESENT DURING BUT HAS A DIFFERENT APPEARANCE TO TO CHANGES IN ABDOMEN/HIP APPEARANCE AFTER DELIVERY OF . ITEMS GIVEN TO TAKE A SHOWER. IV SITE COVERED. SAYS PAIN IS 5/10 WITH MOVEMENT. DISCUSSED ABDOMINAL BINDER SUPPORT. DESIRES TO TRY IT AFTER SHOWER, INFORMED THERE MAY BE A POSSIBILITY THAT INSURANCE WILL NOT COVER AND SHE WILL NEED TO SIGN A PAPER SAYS SHE WILL PAY IF NOT COVERED. VERBALIZED UNDERSANDING. SAYS SHE IS READY TO GO HOME.
--- NOTE | 2019-03-03 13:45 | NUR ---
FINISHED SHOWER. DRESSED IN REGULAR CLOTHES. AND VISITOR IN ROOM.
--- NOTE | 2019-03-03 13:54 | NUR ---
CALLED DR GOMEZ TO LET HIM KNOW THAT PATIENT DESIRE TO GO HOME. ALSO INFORMED OF SMALL AMOUNT OF BLEEDING NOTED AT LEFT EDGE OF INCISION, DIME SIZED THAT RESOLVED QUICKLY. ORDERS RECEIVED.
--- NOTE | 2019-03-03 14:14 | NUR ---
VERBAL AND WRITTEN INFORMATION GIVEN TO PATIENT REGARDING TDAP. PER [facility] IMMUNIZATION RECORDS LAST TDAP WAS IN 2008. AMBULATING IN ROOM. SAYS HER PAIN IS DOING OK. INSTRUCTED SHE CAN HAVE ANOTHER NORCO IN APPROX 45 MINS IF NEEDED. VERBALIZED UNDERSTANDING.
--- NOTE | 2019-03-03 14:21 | NUR ---
ENERGY EFFICIENCY ENGINEER HERE TO SEE PATIENT.
[2019-03-03] MEDS ORDERED: HYDROCODON-ACE1 EA10 PO (14:33)
[2019-03-03] MEDS ORDERED: IBUPROFEN600 MG PO (14:34)
--- NOTE | 2019-03-03 14:47 | NUR ---
NORCO 10 MG GIVEN PO FOR RELIEF OF BACK PAIN AFTER DISCUSSING PAIN MANAGEMENT OPTIONS. WILL BE DC'D HOME WITH MOTRIN AND NORCO 10MG TAB PRESCRIPTION. TDAP ALSO GIVEN IM IN LEFT DELTOID PER PT DESIRE. NO ADDITIONAL REQUESTS.
--- NOTE | 2019-03-03 15:00 | NUR ---
SALINE LOCK DC'D WITH TIP INTACT. ASSISTED PATIENT WITH ABDOMINAL BINDER. STATES "THAT FEELS BETTER". INSTRUCTED ON USE AND CARE OF BINDER. INSTRUCTION SHEET INCLUDED WITH BINDER.
--- NOTE | 2019-03-03 15:35 | NUR ---
DC INSTRUCTIONS COMPLETED. BOTH VERBAL AND WRITTEN INFORMATION GIVEN ON POST OP C/S CARE, S&S INFECTION, DANGER SIGNS, PP DEPRESSION, MEDICATION ADMINISTRATION, BLOOD PATCH, FOLLOW-UP AND BOTTLEFEEDING. SAYS SHE ALREADY KNOWS WHEN TO RETURN TO CLINIC NEXT WEEK FOR STAPLE REMOVAL. HAS BEEN DC'D. VISITORS IN ROOM. TO CALL WHEN READY TO GO HOME.
--- NOTE | 2019-03-03 15:38 | NUR ---
CERTIFIED REHABILITATION COUNSELOR IN ROOM AND CAME TO DESK TO REPORT THAT PT C/O NOT BREATHING VERY WELL. WALKED IN ROOM AND NOTED VISITOR AT BEDSIDE WHO JUST PUSHED CRM BUSINESS ANALYST CONTROLLER. PROVIDED EDUCATION THAT ONLY PATIENT SHOULD PUSH CONTROLLER FOR PAIN RELIEF TO PREVENT RESPIRATOR DEPRESSION. NOTED ELEVATED PULSE IN 120'S. PULSE OX 99% AT O2 100% VIA NASAL CANULA SET BY RESPIRATORY THERAPIST. RESP RATE 24, INSPIRATORY WHEEZING NOTED. BP 125/83 P 126. STAYED IN ROOM WITH PATIENT. INITIALLY CONFUSED TO WHY IN HOSPITAL BUT NOW LESS DROWSY, KNOWS WHY SHE IS HOSPITAL, ANSWERS QUESTIONS APPROPRIATELY, USED INCENTIVE SPIROMETER WITH NON PRODUCTIVE COUGH. HOB ELEVATED TO HIGH FOWLERS. SIDE RAILS UP X 2, CALL LIGHT IN REACH. VISITOR AT BEDSIDE.
--- NOTE | 2019-03-03 16:12 | NUR ---
TO ROOM, PT SITTING ON FLOOR PUTTING FIXING INFANT BLANKETS IN CAR[place]. WAS ABLE TO STAND UP WITHOUT DIFFICULTY. SAYS HER PAIN IS 3/10 WHICH SHE SAYS IS LIVABLE. READY TO GO HOME. Khurram THOMPSON RN DC'D PATIENT VIA WHEELCHAIR TO CAR. IN [place], PT'S MOTHER DRIVING. HAS DC INSTRUCTIONS, PRESCRIPTIONS AND HAS REMOVED ALL BELONGINGS FROM ROOM.
--- NOTE | 2019-03-03 18:07 | NUR ---
PATIENT CALLED L&D AND TOLD THIS RN SHE TRIED TO FILL HER PRESCRIPTION FOR NORCO AT HER PHARMACY. SHE RELATES THAT THE PHARMACIST WILL NOT FILL HER PRESCRIPTION BECAUSE IT WILL NOT BE COVERED BY HER INSURANCE ([employer]). CONTACTED DR CAREY, OB ON-CALL. ORDERS RECEIVED TO CALL IN RX FOR ULTRAM 50 MG PO Q 6 HRS PRN MILD TO MOD PAIN.
--- NOTE | 2019-03-03 18:10 | NUR ---
[facility] [place] CONTACTED TO CALL IN RX FOR DR CAREY, TALKED TO ARVI, PHARMACIST AND GIVEN ORDER FOR ULTRAM 50 MG PO Q 6 HOURS, 25 TABS NO REFILL.
--- NOTE | 2019-03-03 18:19 | NUR ---
PATIENT NOTIFIED THAT RX WAS CALLED IN FOR ULTRAM 50 MG 1 PO Q 6 HRS PRN FOR PAIN. HAS RX FOR MOTRIN 600 MG 1 Q 6 HRS PRN PAIN AT HOME. MAY CONSIDER ALTERNATING MEDICATIONS. TO CALL L&D IF SHE DOES NOT FEEL HER PAIN IS BEING CONTROLLED WITH THE MEDICATIONS PRESCRIBED. VERBALIZED UNDERSTANDING.
== END 2019-03-03 16:12 | disposition home or self-care (01) | DRG 787 ==
LOC: D.LD 06:00
PROVIDERS: ADMIT Obstetrics & Gynecology; ATTEND Obstetrics & Gynecology
PROC: 10D00Z1 Extraction of Products of Conception, Low, Open Approach (ICD-10-PCS; principal; 2019-03-01 10:56)
PROC: 3E0R3GC Introduction of Other Therapeutic Substance into Spinal Canal, Percutaneous Approach (ICD-10-PCS; 2019-03-03)
DX: O99.344 Other mental disorders complicating childbirth (principal); O99.324 Drug use complicating childbirth; F12.90 Cannabis use, unspecified, uncomplicated; O99.334 Smoking (tobacco) complicating childbirth; F32.9 Major depressive disorder, single episode, unspecified; Z3A.39 39 weeks gestation of pregnancy; Z37.0 Single live birth; O89.4 Spinal and epidural anesthesia-induced headache during the puerperium

== ENCOUNTER 2019-03-04 23:38 | Emergency (ER) | payer MEDICAID ==
[~2019-03-04] VITALS: Ht 160 cm; Wt 68.2 kg
[~2019-03-04 23:38] MED LIST changes: -ZOFRAN ODT4 MG/UDTAB PO
[2019-03-04 23:43] VITALS: Ht 160 cm; Wt 68.2 kg
[2019-03-05 00:02] LABS: BASOPHILS 0 % (0-2); EOSINOPHILS 2.4 % (0-7); HEMATOCRIT 25.9 % (36.0-48.0); HEMOGLOBIN 8.8 g/dL (12-16); IMMATURE GRANULOCYTES 0.1 % (0-5); LYMPHOCYTES 30.2 % (15-50); MCH 28.1 pg (26.0-34.0); MCV 82.7 fL (80.0-100.0); MEAN PLATELET VOLUME 10.7 fL (7.4-10.4); MONOCYTES 5.7 % (2-11); NEUTROPHILS 61.6 % (40-80); RBC 3.13 10x6/uL (4.00-5.40); RDW 12.5 % (11.5-14.5); WBC 6.8 10x3/uL (4.8-10.8)
[2019-03-05 00:03] LABS: PLATELET COUNT 188 10x3/uL (130-400)
[2019-03-05 00:22] LABS: ALBUMIN 1.9 g/dL (3.4-5.0); ALKALINE PHOSPHATASE 96 U/L (46-116); ALT (SGPT) 24 U/L (10-68); BILIRUBIN - TOTAL 0.18 mg/dL (0.2-1.3); CALC OSMOLALITY 273 mosm/kg (275-300); CALCIUM 8.4 mg/dL (8.5-10.1); CARBON DIOXIDE 24.2 mmol/L (21.0-32.0); CHLORIDE - SERUM 106 mmol/L (98-107); CREATININE - SERUM 0.5 mg/dL (0.6-1.3); GLUCOSE 79 mg/dL (74-106); LIPASE 64 U/L (73-393); POTASSIUM - SERUM 3.5 mmol/L (3.5-5.1); PROTEIN - SERUM 6.1 g/dL (6.4-8.2); SODIUM 138 mmol/L (136-145); UREA NITROGEN 10 mg/dL (7-18); eGFR NON AFRICAN AMERICAN > 90 mL/min (90-120)
[2019-03-05] MEDS ORDERED: ZOFRAN ODT4 MG/UDTAB PO (02:24)
[2019-03-05 02:38] VITALS: BP 118/78
== END 2019-03-05 02:39 | disposition home or self-care (01) ==
LOC: D.ER 23:38
PROVIDERS: Family Medicine
DX: G89.18 Other acute postprocedural pain (principal); D64.9 Anemia, unspecified

== ENCOUNTER 2019-03-11 10:41 | Emergency (ER) | payer MEDICAID ==
[~2019-03-11] VITALS: Ht 160 cm; Wt 71.8 kg
[~2019-03-11 10:41] MED LIST changes: +ZOFRAN ODT4 MG/UDTAB PO
[2019-03-11 10:45] VITALS: Ht 160 cm; Wt 71.8 kg
[2019-03-11] MEDS ORDERED: IBUPROFEN800 MG PO (12:18)
[2019-03-11] MEDS ORDERED: ACETAMINOPHEN500 M1 PO (12:18)
[2019-03-11] MEDS ORDERED: AUGMENTIN 875-11 TAB PO (12:18)
[2019-03-11] MEDS ORDERED: CYCLOBENZAPRINE10 MG PO (12:18)
[2019-03-11 12:36] VITALS: BP 112/62
== END 2019-03-11 12:36 | disposition home or self-care (01) ==
LOC: D.ER 10:41
DX: O90.0 Disruption of cesarean delivery wound (principal)

== ENCOUNTER 2019-10-29 14:54 | Emergency (ER) | payer MEDICAID ==
[~2019-10-29] VITALS: Ht 160 cm; Wt 77.3 kg
[~2019-10-29 14:54] MED LIST changes: +ACETAMINOPHEN500 M1 PO; +AUGMENTIN 875-11 TAB PO; +CYCLOBENZAPRINE10 MG PO; +IBUPROFEN800 MG PO
[2019-10-29 15:17] VITALS: Ht 160 cm; Wt 77.3 kg
[2019-10-29 15:38] LABS: APPEARANCE CLEAR (CLEAR); BILIRUBIN NEGATIVE (NEGATIVE); COLOR YELLOW (YELLOW); GLUCOSE NEGATIVE (NEGATIVE); KETONE NEGATIVE (NEGATIVE); NITRITE NEGATIVE (NEGATIVE); PROTEIN NEGATIVE (NEGATIVE); UROBILINOGEN NORMAL (NORMAL)
[2019-10-29 15:44] LABS: BACTERIA FEW /hpf (NEGATIVE); EPITHELIAL CELLS 0-5 /hpf (0-5); RED CELLS - URINE 0-5 /hpf (0-5)
[2019-10-29 16:46] LABS: HCG URINE NEGATIVE (NEGATIVE)
[2019-10-29] MEDS ORDERED: VOLTAREN75 MG PO (16:57)
[2019-10-29] MEDS ORDERED: MACROBID100 MG PO (16:57)
[2019-10-29 17:24] VITALS: BP 117/74
== END 2019-10-29 17:25 | disposition home or self-care (01) ==
LOC: D.ER 14:54
PROVIDERS: Family Medicine
DX: N39.0 Urinary tract infection, site not specified (principal); R25.2 Cramp and spasm

== ENCOUNTER 2019-11-03 21:00 | Emergency (ER) | payer MEDICAID ==
[~2019-11-03] VITALS: Ht 160 cm; Wt 77.3 kg
[~2019-11-03 21:00] MED LIST changes: +MACROBID100 MG PO; +VOLTAREN75 MG PO
[2019-11-03 21:10] VITALS: Ht 160 cm; Wt 77.3 kg
[2019-11-03 21:28] LABS: BASOPHILS 0.1 % (0-2); EOSINOPHILS 0.8 % (0-7); HEMATOCRIT 37.9 % (36.0-48.0); HEMOGLOBIN 12.1 g/dL (12-16); IMMATURE GRANULOCYTES 0.3 % (0-5); LYMPHOCYTES 17.1 % (15-50); MCH 25.7 pg (26.0-34.0); MCHC 31.9 g/dL (31.0-37.0); MCV 80.6 fL (80.0-100.0); MEAN PLATELET VOLUME 10.7 fL (7.4-10.4); MONOCYTES 6.2 % (2-11); NEUTROPHILS 75.5 % (40-80); RDW 14.1 % (11.5-14.5); WBC 13.5 10x3/uL (4.8-10.8)
[2019-11-03 21:39] LABS: CALC OSMOLALITY 277 mosm/kg (275-300); CALCIUM 9.3 mg/dL (8.5-10.1); CARBON DIOXIDE 26.2 mmol/L (21.0-32.0); CHLORIDE - SERUM 104 mmol/L (98-107); CREATININE - SERUM 0.7 mg/dL (0.6-1.3); POTASSIUM - SERUM 3.6 mmol/L (3.5-5.1); SODIUM 139 mmol/L (136-145); UREA NITROGEN 10 mg/dL (7-18); eGFR NON AFRICAN AMERICAN > 90 mL/min (90-120)
[2019-11-03 21:48] LABS: ALBUMIN 3.8 g/dL (3.4-5.0); ALKALINE PHOSPHATASE 68 U/L (46-116); ALT (SGPT) 20 U/L (10-68); AMYLASE - SERUM 26 U/L (25-115); BILIRUBIN - TOTAL 0.16 mg/dL (0.2-1.3); TROPONIN-I < 0.017 ng/mL (0.000-0.060)
[2019-11-03 21:49] LABS: PLATELET COUNT 257 10x3/uL (130-400)
[2019-11-03 21:50] LABS: GLUCOSE 121 mg/dL (74-106); LIPASE 49 U/L (73-393)
[2019-11-03 22:29] LABS: HCG SERUM NEGATIVE (NEGATIVE)
[2019-11-04 00:14] LABS: APPEARANCE CLEAR (CLEAR); BILIRUBIN NEGATIVE (NEGATIVE); COLOR YELLOW (YELLOW); GLUCOSE NEGATIVE (NEGATIVE); KETONE NEGATIVE (NEGATIVE); NITRITE NEGATIVE (NEGATIVE); PROTEIN NEGATIVE (NEGATIVE); SPECIFIC GRAVITY 1.005 (1.005-1.020); UROBILINOGEN NORMAL (NORMAL)
[2019-11-04] MEDS ORDERED: FLAGYL500 MG PO (02:02)
[2019-11-04] MEDS ORDERED: ULTRAM50 MG PO (02:06)
[2019-11-04 03:00] VITALS: BP 122/70
== END 2019-11-04 03:00 | disposition home or self-care (01) ==
LOC: D.ER 21:00
PROVIDERS: Family Medicine
DX: N73.9 Female pelvic inflammatory disease, unspecified (principal)